=== PATIENT | male | born 1965 | race Caucasian/White ===

== ENCOUNTER 2016-10-25 07:08 | Emergency (ER) | payer MEDICAID ==
--- NOTE | 2016-10-25 07:12 | EDPHY ---
HPI/HX/ROS/PE/MDM Narrative: CHIEF COMPLAINT: Rib Pain. HPI: The patient is a 51 y/o male arriving via EMS complaining of left rib pain secondary to a fall last night around 23:00, 8 hours prior to arrival. The patient reports walking down an alley last night when he was rushed by a dog and knocked over. He struck the left side of his ribs on an unknown object as he fell. He denies a dog bite or other injuries from the fall. He denies head strike, loss of consciousness, weakness, paraesthesias or other complaints. He notes he's had prior broken ribs on this side. The patient is a poor historian. REVIEW OF SYSTEMS: Aside from elements discussed in the HPI, a comprehensive 10-point review of systems was reviewed and is negative. PMH: PTSD, vertigo, asthma, takes Lyrica SOCIAL HISTORY: Homeless, unemployed, Medicaid patient. PHYSICAL EXAM: General:Patient is alert, in no acute distress. ENT:Eyes are normal to inspection. ENT inspection normal. Neck: Normal inspection. Full range of motion. Respiratory:No respiratory distress. Breath sounds normal bilaterally. Cardiovascular: Regular rate and rhythm. Strong peripheral pulses. Normal cap refill. Abdomen:The abdomen mild LUQ tenderness to palpation. There are no peritoneal signs. Back: Tenderness over left lateral lower ribs and left lateral flank. No visible trauma. Skin: Normal color. No rash. Warm and dry. Extremities: Normal appearance. Full range of motion. Neuro: Oriented x3. Normal motor function. Normal sensory function. ED Course: This is a 51 y/o male who presents with left lower rib pain after he fell onto an unknown object last night. On exam he has tenderness to his left lateral lower ribs and left lateral flank. Due to possibility of spleen injury, plan for chest CT in addition to left rib X-rays and basic lab work. Chest X-ray and CT results were negative for acute process per Dr. Saldivar, radiology. Lung nodules noted. Patient understands that he needs to follow up with his PCP for this. He'll be discharged home in good condition with standard rib contusion instructions. Patient understands and agrees to follow discharge instructions. MDM: This patient presents with blunt flank trauma. There are no signs of PTX, rib fracture, solid organ injury, hematuria or hip fracture. - Data Points Imaging Results: Imaging Impressions Ribs w/Chest X-Ray 10/25/16 07:11 Impression: 1. Old healed left 7th and 11th rib deformities, with no acute rib fracture observed, or evidence of pneumothorax. 2. Equivocal nodular opacity at the left lung base, which will be further evaluated with subsequent chest CT imaging. Chest CT 10/25/16 07:51 Impression: 1. There is no acute rib fracture identified. 2. Mild probably old superior cortical endplate compression deformity at T7. 3. Nonspecific sclerotic opacity involving the posterior right T8 level. It may be worthwhile to check a PSA. 4. Minor dependent subsegmental atelectatic changes, with no pulmonary contusion , pleural hematoma, or pneumothorax. Findings were discussed with Suman Worthington MD at 10:40, on 10/25/2016. Imaging: Discussed imaging studies w/ dispatch officer Radiologist, I viewed and interpreted images myself Laboratory Results: Laboratory Results 10/25/16 08:00 10/25/16 08:00 10/25/16 10/25/16 08:00 08:00 WBC 6.34 10^3/uL 10^3/uL (3.80-9.50) RBC 4.81 10^6/uL 10^6/uL (4.40-6.38) Hgb 14.0 g/dL g/dL (13.7-17.5) Hct 44.1 % % (40.0-51.0) MCV 91.7 fL fL (81.5-99.8) MCH 29.1 pg pg (27.9-34.1) MCHC 31.7 g/dL L g/dL (32.4-36.7) RDW 13.1 % % (11.5-15.2) Plt Count 227 10^3/uL 10^3/uL (150-400) MPV 10.8 fL fL (8.7-11.7) Neut % (Auto) 61.5 % % (39.3-74.2) Lymph % (Auto) 27.1 % % (15.0-45.0) [place] % (Auto) 9.5 % % (4.5-13.0) Eos % (Auto) 1.4 % % (0.6-7.6) Baso % (Auto) 0.2 % L % (0.3-1.7) Nucleat RBC Rel Count 0.0 % % (0.0-0.2) Absolute Neuts (auto) 3.90 10^3/uL 10^3/uL (1.70-6.50) Absolute Lymphs (auto) 1.72 10^3/uL 10^3/uL (1.00-3.00) Absolute Monos (auto) 0.60 10^3/uL 10^3/uL (0.30-0.80) Absolute Eos (auto) 0.09 10^3/uL 10^3/uL (0.03-0.40) Absolute Basos (auto) 0.01 10^3/uL L 10^3/uL (0.02-0.10) Absolute Nucleated RBC 0.00 10^3/uL 10^3/uL (0-0.01) Immature Gran % 0.3 % % (0.0-1.1) Immature Gran # 0.02 10^3/uL 10^3/uL (0.00-0.10) Sodium 142 mEq/L mEq/L (134-144) Potassium 4.0 mEq/L mEq/L (3.5-5.2) Chloride 104 mEq/L mEq/L (97-110) Carbon Dioxide 27 mEq/l mEq/l (22-31) Anion Gap 11 mEq/L mEq/L (8-16) BUN 14 mg/dL mg/dL (7-23) Creatinine 0.8 mg/dL mg/dL (0.7-1.3) Estimated GFR > 60 Glucose 90 mg/dL mg/dL (70-100) Calcium 9.3 mg/dL mg/dL (8.5-10.4) General Initial Vital Signs: Initial Vital Signs Temperature (C) 36.4 C 10/25/16 07:26 Heart Rate 77 10/25/16 07:26 Respiratory Rate 18 10/25/16 07:26 Blood Pressure 112/83 H 10/25/16 07:26 O2 Sat (%) 99 10/25/16 07:26 O2 Delivery Mode Room Air Allergies/Adverse Reactions: Unable to Assess Allergy (Unverified 10/25/16 07:26) Home Medications: Medication Instructions Recorded Pregabalin [LYRICA] 10/25/16 Departure - Departure Disposition: Home, Routine, Self-Care Clinical Impression: Rib contusion Condition: Good Instructions: Rib Contusion (ED) Additional Instructions: 1. Take Ibuprofen or Tylenol as directed on the packaging as needed for pain over the next 3-4 days. 2. Apply ice to sore areas for 20 minutes at a time over the next 24 hours. 3. Return to the emergency department for worsening of condition. 4. Your chest CT showed lung nodules. You need to follow up with your doctor within the next two weeks for further evaluation without fail. Referrals: NONE *PRIMARY CARE P,. [Primary Care Provider] - As per Instructions [facility],. [Clinic] - As per Instructions Report Scribed for: Suman Worthington Report Scribed by: Xuan Tinajero Date of Report: 10/25/16 Time of Report: 07:12 Physician Review and Approval Statement: Portions of this note were transcribed by an ED scribe. I personally performed the history, physical exam, and medical decision making; and confirm the accuracy of the information in the transcribed note.
[2016-10-25 07:29] VITALS: RESP 18; TEMP 97.5
[2016-10-25 09:10] LABS: % IMMATURE GRANULYOCYTES 0.3 % (0.0-1.1); ABSOLUTE IMMATURE GRANULOCYTES 0.02 10^3/uL (0.00-0.10); ADD DIFF? NO; ADD MORPH? NO; ADD SCAN? NO; ATYPICAL LYMPHOCYTE FLAG 10 (0-99); FRAGMENT RBC FLAG 0 (0-99); HEMATOCRIT 44.1 % (40.0-51.0); LEFT SHIFT FLG 0 (0-99); LIPEMIA HEMOLYSIS FLAG 80 (0-99); MEAN CELL HEMOGLOBIN 29.1 pg (27.9-34.1); MEAN CELL HEMOGLOBIN CONCENTR. 31.7 g/dL (32.4-36.7); MEAN CELL VOLUME 91.7 fL (81.5-99.8); MEAN PLATELET VOLUME 10.8 fL (8.7-11.7); PLATELET CLUMPS FLAG 10 (0-99); PLATELET COUNT 227 10^3/uL (150-400); RED BLOOD CELL COUNT 4.81 10^6/uL (4.40-6.38); RED CELL DISTRIBUTION WIDTH 13.1 % (11.5-15.2)
[2016-10-25] MEDS ORDERED: IOPAMIDOL (ISOVUE-300) 100 ML BTL ONE (09:10)
[2016-10-25 09:15] LABS: ANION GAP 11 mEq/L (8-16); CALCIUM 9.3 mg/dL (8.5-10.4); CARBON DIOXIDE 27 mEq/l (22-31); CHLORIDE 104 mEq/L (97-110); CREATININE 0.8 mg/dL (0.7-1.3); GLOMERULAR FILTRATION RATE > 60; GLUCOSE 90 mg/dL (70-100); SODIUM 142 mEq/L (134-144)
[2016-10-25 10:06] VITALS: BP 112/80; PULSE 83; O2SAT 95
== END 2016-10-25 10:53 | disposition home or self-care (01) ==
DX: S20.219A Contusion of unspecified front wall of thorax, initial encounter (principal); J45.909 Unspecified asthma, uncomplicated; W01.198A Fall on same level from slipping, tripping and stumbling with subsequent striking against other object, initial encounter; Y99.8 Other external cause status; Y93.01 Activity, walking, marching and hiking
CPT/HCPCS: Q9967